=== PATIENT | female | born 1950 | race Caucasian/White ===

== ENCOUNTER → 2017-02-05 | Outpatient (CLI) | payer OTHER | LOC: FIMAGING 14:36 | DX: Z12.31 Encounter for screening mammogram for malignant neoplasm of breast (principal) | CPT/HCPCS: G0202 ==

== ENCOUNTER 2018-03-11 09:57 | Inpatient (IN) | payer OTHER ==
--- NOTE | 2018-02-27 15:47 | ASMTCMCOM ---
CM Note CM Note Notes: Deborah with [facility] ran pt insurance: verified [employer] Days 1-20 covered 100%, days 21-100 $167.50 copay. No prior auth needed. Date Signed: 02/27/2018 03:46 PM Electronically Signed By:CHERY Joy
--- NOTE | 2018-03-11 07:17 | PDHPUP ---
History & Physical Update H&P update statement: This history and physical update is based on an assessment of the patient which was completed after admission or registration (within 24 hours), but prior to the surgery/procedure. H&P update: H&P reviewed & patient examined, no change in patient's condition since H&P completed
[~2018-03-11 09:57] MED LIST: ROPIVACAINE 0.2% 80 MG, EPINEPHrine 0.2 MG, KETOROLAC TROMETHAMINE 30 MG in SYRINGE 0 ML IU ONE; TRANEXAMIC ACID 3,000 MG in NS (SYRINGE) 50 ML IRR ONE; TRANEXAMIC ACID 3,000 MG/50 ML BAG IRR ONE
[2018-03-11] MEDS ORDERED: ACETAMINOPHEN 325 MG TAB PO ONE (10:06)
[2018-03-11] MEDS ORDERED: DEXAMETHASONE 4 MG/ML VIAL IVP ONE (10:06)
[2018-03-11] MEDS ORDERED: FAMOTIDINE 20 MG TAB PO ONE (10:06)
[2018-03-11] MEDS ORDERED: LIDOCAINE 1% 2 ML INJ ID PRN (10:06)
[2018-03-11] MEDS ORDERED: LR 1,000 ML IV ONE (10:06)
[2018-03-11] MEDS ORDERED: ceFAZolin 2 GM/DEXTROSE 100 ML IV ONE (10:06)
[2018-03-11] MEDS ORDERED: ceFAZolin 2 GM/SWFI 2 GM/20 ML SYR IVP ONE (10:30)
--- NOTE | 2018-03-11 11:55 | PDANEPAE ---
ANE Past Medical History - Cardiovascular History Hx Hypertension: No Hx Arrhythmias: No Hx Chest Pain: No Hx Coronary Artery / Peripheral Vascular Disease: No Hx CHF / Valvular Disease: No Hx Palpitations: No - Pulmonary History Hx COPD: No Hx Asthma/Reactive Airway Disease: No Hx Recent Upper Respiratory Infection: No Hx Oxygen in Use at Home: No Hx Sleep Apnea: No Sleep Apnea Screening Result - Last Documented: Negative - Neurologic History Hx Cerebrovascular Accident: No Hx Seizures: No Hx Dementia: No - Endocrine History Hx Diabetes: No Endocrine History Comment: HYPOTHYROID - Renal History Hx Renal Disorders: Yes Renal History Comment: FREQUENCY-ON RX - Liver History Hx Hepatic Disorders: No - Neurological & Psychiatric Hx Hx Neurological and Psychiatric Disorders: No - Cancer History Hx Cancer: No - Congenital Disorder History Hx Congenital Disorders: No - GI History Hx Gastrointestinal Disorders: No - Other Health History Other Health History: OA R HIP PAIN;. POST NASAL DRIP-USES NETI POT - Chronic Pain History Chronic Pain: Yes (R HIP) - Surgical History Prior Surgeries: LAP ERNESTO. BREAST BX ANE Review of Systems Review of Systems: - Exercise capacity METS (RN): 4 METS ANE Patient History - Allergies Allergies/Adverse Reactions: latex Allergy (Verified 03/11/18 10:32) Rash - Home Medications Home Medications: Cholecalciferol Vit D3 [Vitamin D3 (*)] 1,000 units PO DAILY 02/17/18 [Last Taken 2 Weeks Ago ~02/25/18] Cyanocobalamin [Vitamin B12 (*)] 1,000 mcg PO SUTH 02/17/18 [Last Taken 3 Weeks Ago ~02/18/18] Herbals/Supplements -Info Only 1 ea PO DAILY 02/17/18 [Last Taken 2 Weeks Ago ~ 02/25/18] Levothyroxine [Synthroid 125 mcg (*)] 125 mcg PO DAILY06 02/17/18 [Last Taken 08:00] Naproxen Sodium [Aleve 220 MG (*)] 220 mg PO DAILY PRN 02/17/18 [Last Taken 1 Week Ago ~03/04/18] [place]-3 Fatty Acids [Fish Oil 1000 mg (*)] 2,000 mg PO DAILY 02/17/18 [Last Taken 2 Weeks Ago ~02/25/18] Oxybutynin Chloride 5 mg PO BID 02/17/18 [Last Taken 03/11/18 08:00] traZODone [traZODONE 50MG (*)] 50 mg PO HS 02/17/18 [Last Taken 1 Day Ago ~03/10] - NPO status NPO Since - Liquids (Date): 03/11/18 NPO Since - Liquids (Time): 08:00 NPO Since - Solids (Date): 03/10/18 NPO Since - Solids (Time): 18:00 - Smoking Hx Smoking Status: Never smoked ANE Labs/Vital Signs - Vital Signs Blood Pressure: 143/76 Heart Rate: 62 Respiratory Rate: 18 O2 Sat (%): 94 Height: 160.02 cm Weight: 72.575 kg ANE Physical Exam - Airway Neck exam: FROM Mallampati Score: Class 2 Mouth exam: normal dental/mouth exam - Pulmonary Pulmonary: no respiratory distress - Cardiovascular Cardiovascular: regular rate and rhythym - ASA Status ASA Status: II ANE Anesthesia Plan Anesthesia Plan: spinal
[2018-03-11] MEDS ORDERED: PROPOFOL/EMULSION 500 MG/50 ML BOTTLE IV ONE (11:59)
[2018-03-11] MEDS ORDERED: fentaNYL 100 MCG/2 ML INJ ONE (11:59)
[2018-03-11] MEDS ORDERED: BISACODYL 10 MG SUPP PR PRN (12:29)
[2018-03-11] MEDS ORDERED: ONDANSETRON 4 MG/2 ML VIAL IVP PRN (12:29)
[2018-03-11] MEDS ORDERED: CYCLOBENZAPRINE 10 MG TAB PO PRN (12:29)
[2018-03-11] MEDS ORDERED: METOCLOPRAMIDE 10 MG/2 ML VIAL IVP PRN (12:29)
[2018-03-11] MEDS ORDERED: PROMETHAZINE HCL 25 MG/ML INJ IVP PRN (12:29)
[2018-03-11] MEDS ORDERED: DIPHENOXYLATE/ATROPINE LOMOTIL 1 TAB PO PRN (12:29)
[2018-03-11] MEDS ORDERED: POLYETHYLENE GLYCOL 3350 17 GM PKT PO PRN (12:29)
[2018-03-11] MEDS ORDERED: ONDANSETRON DISINTEGRATING 4 MG TAB PO PRN (12:29)
[2018-03-11] MEDS ORDERED: TEMAZEPAM 15 MG CAP PO PRN (12:29)
[2018-03-11] MEDS ORDERED: MAGNESIUM HYDROXIDE 30 ML UDCUP PO PRN (12:29)
[2018-03-11] MEDS ORDERED: diphenhydrAMINE 25 MG CAP PO PRN (12:29)
[2018-03-11] MEDS ORDERED: LACTULOSE 20 GM/30 ML UDCUP PO PRN (12:29)
[2018-03-11] MEDS ORDERED: PROMETHAZINE HCL 25 MG SUPPR PR PRN (12:29)
[2018-03-11] MEDS ORDERED: LR 1,000 ML IV SCH (12:30)
[2018-03-11] MEDS ORDERED: NALOXONE HCL 0.4 MG/ML INJ IVP PRN (13:33)
[2018-03-11] MEDS ORDERED: fentaNYL 100 MCG/2 ML INJ IVP PRN (13:33)
[2018-03-11] MEDS ORDERED: ALBUTEROL 3 ML DEYVIAL IH PRN (13:33)
--- NOTE | 2018-03-11 13:33 | POSTANESTH ---
Post Anesthetic Evaluation Cardiovascular Status: Similar to Pre-Op Cond Respiratory Status: Similar to Pre-op Cond. Level of Consciousness/Mental Status: Alert and Oriented Pain Control: Adequate, Prn Tx Ordered Nausea/Vomiting Control: Adequate, Prn Tx Ordered Complications Possibly Related to Anesthesia: None Noted
--- NOTE | 2018-03-11 13:38 | POSTOPPROG ---
Post Op Note Date of Operation: 03/11/18 Surgeon: Kisha Hernandez Manager Biostatistics: David PAc Anesthesiologist: Diana Anesthesia: Spinal Pre-op Diagnosis: R hip djd Post-op Diagnosis: same Indication: pain Procedure: R GISELLE Findings: DJD hip Inf/Abcess present in the surg proc area at time of surgery?: No EBL: 100-500
[2018-03-11] MEDS ORDERED: ceFAZolin 2 GM/DEXTROSE 100 ML IV SCH (14:00)
[2018-03-11] MEDS ORDERED: oxyCODONE IR 5 MG TAB ONE (14:18)
[2018-03-11] MEDS: oxyCODONE IR 5 MG TAB PO PRN ×2 (14:30→20:28)
--- NOTE | 2018-03-11 16:10 | PDMN ---
Medical Necessity Medical necessity: Pt meets INPT criteria per and [facility]
[2018-03-11] MEDS: ACETAMINOPHEN 325 MG TAB PO SCH (17:33)
[2018-03-11] MEDS: ceFAZolin 2 GM/SWFI 2 GM/20 ML SYR IVP SCH (18:00)
[2018-03-11] MEDS: ASPIRIN 81 MG CHEWABLE TAB PO SCH (20:28)
[2018-03-11] MEDS: SENNOSIDES/DOCUSATE SODIUM TAB PO SCH (20:28)
[2018-03-11] MEDS: FAMOTIDINE 20 MG TAB PO SCH (20:28)
[2018-03-11] MEDS: OXYBUTYNIN CHLORIDE 5 MG TAB PO SCH (20:28)
[2018-03-11] MEDS ORDERED: traZODone 50 MG TAB PO SCH (21:00)
[2018-03-12] MEDS: ACETAMINOPHEN 325 MG TAB PO SCH ×4 (00:41→12:47)
[2018-03-12] MEDS: ceFAZolin 2 GM/SWFI 2 GM/20 ML SYR IVP SCH (03:15)
[2018-03-12] MEDS ORDERED: LEVOTHYROXINE 125 MCG TAB PO SCH (06:00)
[2018-03-12] MEDS: oxyCODONE IR 5 MG TAB PO PRN ×2 (06:35→16:57)
[2018-03-12] MEDS: ASPIRIN 81 MG CHEWABLE TAB PO SCH (08:31)
[2018-03-12] MEDS: FAMOTIDINE 20 MG TAB PO SCH (08:31)
[2018-03-12] MEDS: OXYBUTYNIN CHLORIDE 5 MG TAB PO SCH (08:31)
[2018-03-12] MEDS: SENNOSIDES/DOCUSATE SODIUM TAB PO SCH (08:31)
--- NOTE | 2018-03-12 08:45 | SOAPPROG ---
ANA MARÍA Progress Note Assessment/Plan: Assessment: Patient is doing well POD 1 s/p R GISELLE Pain management: pain is well controlled on oral pain meds. patient expressed frustration about delay in receiving pain meds last night. patient has not tried flexeril yet, we recommended that she try a dose of flexeril as that often helps with pain as much if not more than oxycodone. VTE ppx: recommend aspirin 81 mg BID for 4 weeks, cont GUILLERMINA and SCDs Anemia: level is expected initially postop. Asymptomatic. Continue to monitor D/c planning: d/c to rehab, most likely [facility], today pending release from PT and OT. Patient lives in a camper van and will most likely have difficulty with ADLs initially postop R GISELLE living in a camper van patient upset about patient care while she has been in the hospital: encouraged patient to speak with patient advocate and informed nurse search engine marketing manager about patient' s feelings. Asked for patient to be seen by nurse search engine marketing manager to discuss patient's experience further. Plan: 03/12/18 08:41 03/12/18 08:45 Subjective: Keturah is doing well, laying comfortably in bed. States she had an unpleasant night and has had poor nursing care, but didn't want to elaborate. Denies SOB, chest pain and N/V. Objective: Vital Signs Temp Pulse Resp BP Pulse Ox 36.7 C 61 16 160/73 H 92 03/12/18 04:00 03/12/18 04:00 03/12/18 04:00 03/12/18 04:00 03/12/18 04:00 Laboratory Results 03/12/18 05:24 03/11/18 03/12/18 03/13/18 05:59 05:59 05:59 Intake Total 1588 Output Total 1700 Balance -112 RLE: incision dressing is clean and dry, NVI, +pf/df ICD10 Worksheet Patient Problems: Problems Problem Status Onset Primary localized osteoarthritis of right hip Acute
--- NOTE | 2018-03-12 09:22 | GDS ---
[f rep st] DISCHARGE SUMMARY ADMISSION DIAGNOSIS: Right hip osteoarthritis. DISCHARGE DIAGNOSIS: Right hip osteoarthritis. PROCEDURE: Right total hip arthroplasty. VTE PROPHYLAXIS: Recommend aspirin 81 mg twice daily for 4 weeks. BRIEF DESCRIPTION OF HOSPITAL STAY: Patient was admitted for an elective joint arthroplasty. The pa elvint tolerated the procedure well and has passed physical therapy. The patient was given appropriat e antibiotic prophylaxis and venous thromboembolism prophylaxis. The patient's pain was well control led on oral pain medication, patient was holding down food, and had urinated. Decision was made to d ischarge the patient. The patient was given post-operative prescriptions pre-operatively. PLAN: To follow up as scheduled in Dr. Hernandez's office on 04/02 at 1:15. /[id number]/MODL
--- NOTE | 2018-03-12 11:39 | ASMTCMCOM ---
CM Note CM Note Notes: CM met w/ pt for dispo planning. Pt would like a referral made to [facility] and [facility]. [facility] is pts first choice. Deborah from [facility] came and did an on site. Pt is requesting for a private room at [facility]. [facility] has a bed either today or tomorrow. CM communicated this info to Laurie Smart RN. CM to follow. Plan: [facility] Date Signed: 03/12/2018 11:38 AM Electronically Signed By:MARIA ISABEL Mcneill
--- NOTE | 2018-03-12 14:44 | PDIAF ---
- Diagnosis Diagnosis: s/p L GISELLE Code Status: Full Code - Medication Management Discharge Medications: Medications to Continue on Transfer Cholecalciferol Vit D3 [Vitamin D3 (*)] 1,000 units PO DAILY 02/17/18 [Last Taken 2 Weeks Ago ~02/25/18] Cyanocobalamin [Vitamin B12 (*)] 1,000 mcg PO SUTH 02/17/18 [Last Taken 3 Weeks Ago ~02/18/18] Herbals/Supplements -Info Only 1 ea PO DAILY 02/17/18 [Last Taken 2 Weeks Ago ~ 02/25/18] Levothyroxine [Synthroid 125 mcg (*)] 125 mcg PO DAILY06 02/17/18 [Last Taken 08:00] [place]-3 Fatty Acids [Fish Oil 1000 mg (*)] 2,000 mg PO DAILY 02/17/18 [Last Taken 2 Weeks Ago ~02/25/18] Oxybutynin Chloride 5 mg PO BID 02/17/18 [Last Taken 03/11/18 08:00] traZODone [traZODONE 50MG (*)] 50 mg PO HS 02/17/18 [Last Taken 1 Day Ago ~03/10] Acetaminophen [Tylenol 325mg (*)] 650 mg PO Q6HRS tab 03/12/18 [Last Taken Unknown] Aspirin [Aspirin 81mg (*)] 81 mg PO BID tab.chew 03/12/18 [Last Taken Unknown] Cyclobenzaprine [Flexeril 10 MG (*)] 10 mg PO Q8HRS PRN tab 03/12/18 [Last Taken Unknown] Polyethylene Glycol 3350 [Miralax 17 gm (*)] 17 gm PO DAILY PRN pkt 03/12/18 [ Last Taken Unknown] Sennosides/Docusate Sodium [Senokot-S] 1 - 2 tab PO BID tab 03/12/18 [Last Taken Unknown] celeCOXIB [Celebrex (*)] 200 mg PO DAILY cap 03/12/18 [Last Taken Unknown] oxyCODONE IR [Oxycodone Ir (*)] 5 - 10 mg PO Q3HRS PRN tab 03/12/18 [Last Taken Unknown] Discharge Medications: Refer to the Discharge Home Medication list for PRN reason. - Orders Diet Recommendation: no restrictions on diet Diet Texture: Regular Texture Diet Guillermina Stockings Discontinue Date: 2 weeks, daytime only Additional Instructions: Joint Protocol-Hip Replacement Follow up with Dr. Alana almodovar as scheduled After surgery instructions: Take Aspirin 81mg by mouth twice daily for 4 weeks (helps to prevent blood clots ) Wear thigh high GUILLERMINA hose on both legs during the daytime for 2 weeks (helps to prevent blood clots and decrease swelling in the surgical leg). It is ok to remove GUILLERMINA hose at night time to give your legs a break. It is common for swelling and bruising to occur in the entire surgical leg even extending to the foot, if concerned call Dr. Whiet office [phone] Weight bearing as tolerated Use a walker for 7-14 days Do exercises in the book 2-3 times a day Ice at least 3-5 times a day for 30 minutes each time, if not more often. If you have further questions that are not addressed here, please look at the information packet handed to you at the preop appointment. Most will be answered on the FAQs, after surgery instructions and incision care pages. You may also call Dr. Alana almodovar with questions as well. *IF YOU HAVE A LIFE THREATENING EMERGENCY, CALL 911. FOR NON-LIFE THREATENING ISSUES, PLEASE CALL DR. ALANA ALMODOVAR FIRST. A PHYSICIAN IS BOX SHOOK PATCHER 12/05. Incision/Dressing Care: You may shower tomorrow, you do not have to cover your incision dressing as it should be waterproof. Please do not immerse in water, but water running down in it a shower should be ok. Keep the incision (pena) dressing clean and dry. If the incision dressing gets soiled or wet underneath, change dressing to the dressing given to you by the hospital. (pena dressing will turn black if drainage occurs) Remove incision dressing (pena one) two weeks after surgery. Leave steri strips alone. They will fall off on their own. Do not have anyone else remove the incision dressing prior to the stated recommendation (2 weeks after surgery). If there are incision concerns, contact Dr. White office. (Nazia or Dr. Hernandez may remove earlier if concerns arise) If incision site (pena dressing) has drainage, call Dr. White office, [phone]. Nazia and Dr. Hernandez may ask you to come into the office for further evaluation - Follow Up Care Current Providers and Referrals: Kisha Hernandez MD [Medical Doctor] - Padmini Fernandes MD [Primary Care Provider] -
--- NOTE | 2018-03-12 15:01 | ASMTLACE ---
LACE Length of stay for Answers: 1 day current admission Acuity / Level of Answers: Yes Care: Did the patient have an inpatient admission? Comorbidities - select Answers: Opioid dependence all that apply / Chronic pain # of Emergency department Answers: 0 visits in the last 6 months Score: 8 Date Signed: 03/12/2018 03:00 PM Electronically Signed By:MARIA ISABEL Mcneill
[2018-03-12 16:33] VITALS: BP 160/84
--- NOTE | 2018-03-13 00:26 | GOP ---
[f rep st] OPERATIVE REPORT DATE OF OPERATION: 03/11/2018 SURGEON: Juan Jose Hernandez MD UTILITY PORTER: GISSELLE Temple. PREOPERATIVE DIAGNOSIS: Right hip osteoarthritis. POSTOPERATIVE DIAGNOSIS: Right hip osteoarthritis. PROCEDURE PERFORMED: Total hip arthroplasty with x-ray. FINDINGS: ESTIMATED BLOOD LOSS: 200 cc. INDICATIONS: The patient has progressively worsening arthritis of the hip which has failed medical m anagement. The patient understands the treatment options including continued non-operative care and has selected surgical intervention. The patient has decided to undergo total hip arthroplasty via th e direct anterior approach, understanding the risks of the procedure including, but not limited to, n eurovascular injury, infection, persistent pain, component wear and loosening, deep venous thrombosis , pulmonary embolism, limb length inequality, hip instability (including dislocation), and intra-oper ative fractures. DESCRIPTION OF PROCEDURE: After proper identification of the patient including verification and peyman ing the surgical site, the patient was brought to the operating room and placed in the supine positio n. All bony prominences were well padded. Anesthesia was induced without complication and intraveno us prophylactic antibiotics were administered prior to skin incision. The operative leg was placed in the Trumpf Arch table extension and the well leg in a Yellofin leg ho lder. The patient was prepped and draped in the usual sterile fashion. The C-arm was draped for int ra-operative fluoroscopy to check acetabular position, femoral component position including leg lengt h and femoral offset. Attention was then drawn to surgical exposure of the hip. An incision was made with a #[address] [place] r blade starting 3 cm lateral and 3 cm distal to the anterior superior iliac spine measuring 8-10 cm and coursing distally toward the greater trochanter. The skin and subcutaneous tissues were divided sharply down to the fascia wilian. The fascia wilian was incised in line with the skin incision exposing the underlying tensor fascia wilian muscle. The muscle was bluntly elevated from the fascia and the f irst extracapsular Cobra retractor was placed laterally at the junction of the superior femoral neck and greater trochanter. The lateral femoral circumflex vessels were identified, cauterized, and divi ded with the Aquamantys bipolar cautery. The deep investing fascia of the TFL was divided to allow p madalyn mobilization of the muscle preventing damage during the retraction. The reflected head of the rectus femoris muscle was elevated off the anterior hip capsule and a medial Cobra retractor was plac ed just proximal to the lesser trochanter. The anterior capsulotomy was made sharply from the superolateral acetabulum to the saddle junction of the superior femoral neck and greater trochanter, then coursing inferomedial towards the lesser troc hanter. The retractors were then placed in the intracapsular position for femoral neck osteotomy. C orresponding to pre-operative templating, the osteotomy was made with the oscillating saw carefully p rotecting the greater trochanter and soft tissues. The femoral head was removed from the acetabulum with a corkscrew and confirmed to be severely arthritic with exposed bone, deformity and osteophytes. Similar findings were confirmed in the acetabulum. The Arch table extension was then placed in 40 degrees external rotation. Attention was then drawn to the acetabular preparation. After placement of the anterior and posterio r Cobra retractors outside the labrum and intracapsular, the circumferential labrum was removed sharp ly. The foveal contents were then removed and hemostasis obtained with cautery. The first reamer selected was sized using the removed femoral head. Reaming began with medialization and then commenced in 2 mm increments at 45 degrees of abduction and 15 degrees of anteversion using fluoroscopic navigation. Reaming ceased 1 mm less than the definitive acetabular component and jorge esponded to the pre-operative templating. The final acetabular component was inserted using fluorosc opy to achieve proper orientation yielding excellent purchase and stability in the acetabulum. The f inal acetabular liner was then placed and its seating confirmed. Attention was then turned to the femur. The Arch table extension was placed in extension and adducti on, delivering the osteotomized femoral neck into the wound. A 2-pronged femoral elevator was placed at the calcar and another at the tip of the greater trochanter. The posterolateral capsule was rele ased with cautery allowing mobilization of the femur lateral and anterior for preparation. The exter nal rotators were visualized and preserved. A curette and rongeur were used to open the starting poi nt for broaching. Serial broaching started with the #0 broach and ended with the broach that exhibit ed excellent fit in the proximal femur. A change in pitch during mallet strikes was accompanied by t he inability to advance the broach any further. The trial reduction was performed and fluoroscopic n avigation was utilized to check limb length. Adjustments were made to equalize limb length according ly. After the final trials were accepted they were removed and the wound was copiously lavaged. The femo ral component was seated to the same depth as the final broach and the femoral head was impacted onto the clean trunnion. The hip was then reduced for the final time and once more fluoroscopy was used to check that limb length equality was achieved. The wound was irrigated and closed in layers, the fascia wilian with 2-0 Quill, the subcutaneous tissue with 2-0 Quill, and the skin with Dermabond. Sterile dressings were applied. Final sharps and spon ge counts were accurate. The patient was then transferred to a hospital bed and brought to the [facility] room in stable condition. PROCEDURE: Right total hip replacement with x-ray. SURGEON: Juan Jose Hernandez MD. IMPLANTS: Accolade II size 3 at 127. Acetabular component, 58 mm Tritanium. The liner is a Trident X3, 36 mm. The head is a Biolox Delta 36 mm, +2.5. /[id number]/MODL
--- NOTE | 2018-03-13 09:25 | ASDISCHSUM ---
Discharge Information Plan Status:SNF Medically Cleared to Leave:03/12/2018 Discharge Date:03/12/2018 04:59 PM CM D/C Disposition:Jail Facility ADT D/C Disposition:Jail Facility Projected Discharge Date:03/12/2018 11:00 AM Transportation at D/C:Wheelchair Van Discharge Delay Reason: Follow-Up Date:03/12/2018 11:00 AM Discharge Slot: Final Diagnosis: Placement Information Referral Type:*[facility]/SNF Referral ID:[id number] Provider Name:Abida Alejandra Address 1[address] Phone Number: Address 2: Fax Number: City:[place] Selection Factors: State:[place] Patient Contact Information Contact Name:ARIS Relationship:Elba Address: Home Phone: City: [facility] Phone: [facility] Code: Email: Financial Information Financial Class:Medicare Advantage Plans Primary Plan Desc:[place] [employer] [place] Primary Plan Number:[id number] Secondary Plan Desc: Secondary Plan Number: Assessment Information CM Narrow Gauge Brakeman Assessment CJR Did you go to joint Answers: No (why?) Notes: Patient viewed online class? video CM Note CM Note Notes: GISSELLE Temple, requested Case Management reach out to Keturah prior to her March 11 scheduled surgery date regarding discharge planning needs and questions. Keturah stated she has seen the online 'Joint Class' video and feels prepared for her surgery. However, she expressed concerns about her current living and financial situation: Keturah is currently residing in her vehicle and does not have the means to stay in a hotel, with family, or with friends after surgery. Keturah and GISSELLE Temple, discussed discharging to a care home facility once she is medically stable. Keturah is in agreement as long as her [place] Medicare Advantage Plan will cover the cost. I encouraged her to contact her insurance directly to learn more about her cost and benefits. If her insurance will cover the cost of SNF, Keturah would like referrals made to facilities near [place], [place]. I gave her information for [facility] and encouraged her to take a tour of the facility. CM Narrow Gauge Brakeman left contact information with the patient and will be following her once she is admitted for any other discharging needs. Date Signed: 02/27/2018 12:01 PM Electronically Signed By:Chetna Kumar [facility] CM Progress Note CM Note CM Note Notes: Deborah with [employer] ran pt insurance: verified [employer] Days -20 covered 100%, days 21-100 $167.50 copay. No prior auth needed. Date Signed: 02/27/2018 03:46 PM Electronically Signed By:CHERY Joy LACE LACE Length of stay for Answers: 1 day current admission Acuity / Level of Answers: Yes Care: Did the patient have an inpatient admission? Comorbidities - select Answers: Opioid dependence all that apply / Chronic pain # of Emergency department Answers: 0 visits in the last 6 months Score: 8 Date Signed: 03/12/2018 03:00 PM Electronically Signed By:MARIA ISABEL Mcneill [facility] CM Progress Note CM Note CM Note Notes: CM met w/ pt for dispo planning. Pt would like a referral made to [facility] and [facility]. [facility] is pts first choice. Deborah from [facility] came and did an on site. Pt is requesting for a private room at [facility]. [facility] has accepted pt. [facility] has a bed either today or tomorrow. FELECIA communicated this info to Laurie Smart RN. CM to follow. Plan: [facility] Date Signed: 03/12/2018 11:38 AM Electronically Signed By:MARIA ISABEL Mcneill Case Management Discharge Plan Note Case Management Discharge Discharge Order Complete? Answers: Yes Patient to Obtain Answers: Other Notes: [facility] Medications Transportation Arranged Answers: Other Notes: [facility] provided by [facility] Transport will Pick (Date 03/12/2018 05:00 PM & Time) EMTALA Complete Answers: No Case Management Transport Answers: Yes Form Complete Faxed Final Orders Answers: Yes Agency/Facility Transfer Answers: Yes Report Printed & Faxed to Receiving Agency Family Notified Answers: No Discharge Comments Notes: Pt is being discharged today to [facility]. [facility] will have a private room for pt. DC orders sent. provided Laurie Smart RN w/ phone number to give report. CM available for changes. Plan: [facility] Date Signed: 03/12/2018 02:58 PM Electronically Signed By:MARIA ISABEL Mcneill Intervention Information
== END 2018-03-12 16:59 | DRG 470 ==
LOC: F3N 09:57
PROVIDERS: ADMIT Orthopaedic Surgery; ATTEND Orthopaedic Surgery
PROC: 0SR904Z Replacement of Right Hip Joint with Ceramic on Polyethylene Synthetic Substitute, Open Approach (ICD-10-PCS; principal; 2018-03-11 12:15)
DX: M16.11 Unilateral primary osteoarthritis, right hip (principal); E03.9 Hypothyroidism, unspecified
CPT/HCPCS: 97161-GP; 97165-GO; G8978-GP-CI; G8979-GP-CI; G8980-GP-CI; G8987-GO-CI; G8988-GO-CI; J0171; J0690; J1100; J1885; J2704; J2795; J3010